=== PATIENT | female | born 1955 | race Caucasian/White ===

== ENCOUNTER → 2019-02-09 | Outpatient (CLI) | payer BC ==
[~2019-02-09] MED LIST: CYTOMEL 2525 MCG/TAB PO; PRINZIDE 12.5 M1 TA1 PO; SYNTHROID0.05 MG/TA PO; WELLBUTRIN XL300 M1 PO; ZYRTEC 10MG10 MG PO
== END ==
LOC: MC.RAD 10:13
DX: Z12.31 Encounter for screening mammogram for malignant neoplasm of breast (principal)

== ENCOUNTER 2020-11-01 00:32 | Emergency (ER) | payer BC ==
[~2020-11-01] VITALS: Ht 172.7 cm; Wt 99.5 kg
[2020-11-01 01:01] LABS: BASO % 0.4 % (0.0-2.0); EOS # 0.3 (0.0-0.7); EOS % 2.6 % (0-4.0); GRAN # 6.2 (1.4-6.5); GRAN % 55.2 % (42.2-75.2); HEMATOCRIT 46.2 % (37.0-47.0); HEMOGLOBIN 14.9 g/dl (12.5-16.0); LYMPH # 3.7 (1.2-3.4); MEAN CELL VOLUME 93 fl (80.0-100.0); MEAN CORPUSCULAR HEMOGLOBIN 30 pg (27.0-31.0); MEAN CORPUSCULAR HGB CONC 32 g/dl (33.0-37.0); MEAN PLATELET VOLUME 10.5 fl (7.4-10.4); MONO # 0.9 (0.1-0.6); MONO % 8.4 % (1.7-9.3); PLATELET COUNT 280 K/mm3 (130-400); RED BLOOD COUNT 4.96 M/mm3 (4.10-5.30); REDCELL DISTRIBUTION WIDTH-CV 13.3 % (11.5-14.5)
[2020-11-01 01:13] LABS: ALANINE AMINOTRANSFERASE 20 U/L (4-34); ALKALINE PHOSPHATASE 82 U/L (50-136); ANION GAP 8 mmol/L (7-16); AST,SGOT 32 U/L (15-37); BILIRUBIN,TOTAL 0.5 mg/dL (0.0-1.0); BLOOD UREA NITROGEN 24 mg/dL (7-17); CALCIUM 9.3 mg/dL (8.4-10.2); CARBON DIOXIDE 23 mmol/L (22-30); CHLORIDE 104 mmol/L (98-107); CREATININE, serum 0.85 (0.52-1.25); GLUCOSE 114 mg/dL (74-106); POTASSIUM 4.2 mmol/L (3.4-5.0); SODIUM 136 mmol/L (137-145); TOTAL PROTEIN 7.4 gm/dL (6.4-8.2)
[2020-11-01 01:28] LABS: TROPONIN-I < 0.012 ng/mL (0.000-0.035)
[2020-11-01] MEDS ORDERED: MOTRIN 800800 MG/TAB PO (03:16)
[2020-11-01] MEDS ORDERED: NORCO 325 MG-51 TAB PO (03:16)
[2020-11-01 03:37] VITALS: BP 119/90; PULSE 80; TEMP 97.8
== END 2020-11-01 03:39 | disposition home or self-care (01) ==
LOC: COL.ER 00:32
PROVIDERS: Personal Emergency Response Attendant
DX: R07.89 Other chest pain (principal); E03.9 Hypothyroidism, unspecified; I10 Essential (primary) hypertension; F32.9 Major depressive disorder, single episode, unspecified; Z79.899 Other long term (current) drug therapy; Z79.890 Hormone replacement therapy
CPT/HCPCS: J1885; J2405; J3010